=== PATIENT | male | born 1940 | race Caucasian/White ===

== ENCOUNTER 2016-12-26 09:04 | Emergency (ER) | payer OTHER ==
[~2016-12-26] VITALS: Ht 182.9 cm; Wt 66.2 kg
[2016-12-26 09:45] LABS: HEMATOCRIT 38.1 % (38.0-50.0); MCH 31.4 PG (29.0-34.0); MCHC 33.6 G/DL (30.0-36.0); MCV 93.6 FL (86-99); MEAN PLAT.VOLUME 11.8 uM^3 (9.0-12.4); PLATELET COUNT 213 K/uL (156-360); RBC DIS.WIDTH-SD 41.2 % (39-53); RED BLOOD COUNT 4.07 M/uL (4.00-5.50); WHITE BLOOD COUNT 7.3 K/uL (4.1-10.2)
[2016-12-26 10:11] LABS: CHLORIDE 107 mEq/L (99-109); POTASSIUM 4.8 mEq/L (3.7-5.4); SODIUM 136 mEq/L (136-147)
[2016-12-26 10:13] LABS: GLUCOSE 179 mg/dL (70-99)
[2016-12-26 10:14] LABS: ANION GAP 10 MEQ/L (2-14)
[2016-12-26 10:15] LABS: TOTAL BILIRUBIN 0.8 mg/dL (0.0-1.0)
[2016-12-26 10:16] LABS: ALKALINE PHOSPHATASE 80 IU/L (3-129)
[2016-12-26 10:17] LABS: GFR ESTIMATE (CALCULATED) 42 mL/min/
[2016-12-26 10:18] LABS: UREA NITROGEN (BUN) 30 mg/dL (9-23)
[2016-12-26 11:24] LABS: ADD MIUA? YES; BILIRUBIN NEGATIVE; BLOOD NEGATIVE; COLOR YELLOW ((YELLOW)); GLUCOSE (STRIP) NEGATIVE; KETONES 5; LEUKOCYTES TRACE; NITRITE NEGATIVE; PROTEIN (STRIP) NEGATIVE; SPECIFIC GRAVITY 1.006 (1.000-1.030); UROBILINOGEN 0.2 MG/DL (0.2-1.0)
[2016-12-26 11:42] LABS: BACTERIA RARE /HPF; EPITHELIAL CELLS NONE SEEN /HPF; MUCUS NONE SEEN /LPF; RED BLOOD CELLS 0-5 /HPF (0-5); UCUL ADDED? NO
[2016-12-26] MEDS ORDERED: ZOFRAN4 MG PO (13:39)
[2016-12-26] MEDS ORDERED: ULTRAM50 MG PO (13:40)
[2016-12-26 14:03] VITALS: BP 124/62
== END 2016-12-26 14:11 | disposition home or self-care (01) ==
LOC: EME 09:04
DX: R10.9 Unspecified abdominal pain (principal); K21.9 Gastro-esophageal reflux disease without esophagitis
CPT/HCPCS: 74022; 74176; 80053; 81003; 85027; 99281; 99285; J3010; J7030